=== PATIENT | female | born 1960 | race Caucasian/White ===

== ENCOUNTER 2016-06-28 11:56 | Emergency (ER) | payer OTHER ==
[2016-06-28 12:11] VITALS: BP 149/82
--- NOTE | 2016-06-28 12:40 | UC ---
General HPI - HPI Summary HPI Summary: 56 yo female reports trouble sleeping and anxiety since her son's in Sep Her BP as also been high she is a smoker - History of Current Complaint Chief Complaint: UCAlteredMentalStatus Stated Complaint: ANXIETY, AND HIGH BLOOD PRESSURE Time Seen by Provider: 06/28/16 12:20 Onset/Duration: Gradual Onset, Lasting Weeks Onset Severity: Moderate Current Severity: Moderate Pain Intensity: 0 Associated Signs & Symptoms: Negative: Agitation, Abdominal Pain, Anticoagulation Therapy, Back Pain, Confusion, Cough, Chest Pain, Decreased Responsiveness, Dizziness, Diarrhea, Dysuria, Decreased Oral Intake, Diaphoresis , Edema, Fever, Headache, Hematemesis, Hemoptysis, Immunocompromised, In- Dwelling Medication Device, Melena, Nausea, Palpitations, Recent Medication Changes, Syncope, SOB, Trauma, Vomiting, Wheezing, Weakness - Allergy/Home Medications Allergies/Adverse Reactions: Allergies Allergy/AdvReac Type Severity Reaction Status Date / Time No Known Allergies Allergy Verified 06/28/16 12:11 Home Medications: Home Medications ALPRAZolam TAB* [Xanax TAB*] 0.5 mg PO Q8H PRN 06/28/16 [History Confirmed 06/28] PARoxetine HCL TAB* [Paxil TAB*] 06/28/16 [History] PMH/Surg Hx/FS Hx/Imm Hx Previously Healthy: Yes Endocrine History Of: Denies: Diabetes, Thyroid Disease Cardiovascular History Of: Denies: Cardiac Disorders, Hypertension Respiratory History Of: Denies: COPD, Asthma GI/ History Of: Denies: Ulcer - Surgical History Surgical History: Yes Surgery Procedure, Year, and Place: 2 c-sections - Family History Known Family History: Positive: Hypertension, Other - cardiomyopathy...son and uncle - Social History Alcohol Use: Rare Substance Use Type: None Smoking Status (MU): Heavy Every Day Tobacco Smoker Cessation Counseling: Patient Advised to Stop Review of Systems Constitutional: Negative Skin: Negative Eyes: Negative ENT: Negative Respiratory: Negative Cardiovascular: Negative Gastrointestinal: Negative Genitourinary: Negative Motor: Negative Neurovascular: Negative Musculoskeletal: Negative Neurological: Negative Psychological: Anxious All Other Systems Reviewed And Are Negative: Yes Physical Exam Triage Information Reviewed: Yes Appearance: Well-Appearing, No Pain Distress, Well-Nourished Vital Signs: Initial Vital Signs Temp 98.5 F 06/28/16 12:06 Pulse 88 06/28/16 12:06 Resp 18 06/28/16 12:06 BP 149/82 06/28/16 12:06 Pulse Ox 100 06/28/16 12:06 Vital Signs Reviewed: Yes Eye Exam: Normal ENT: Positive: Normal ENT inspection Neck: Positive: Nontender, No Lymphadenopathy Respiratory: Positive: Lungs clear, Normal breath sounds, No respiratory distress, No accessory muscle use Cardiovascular: Positive: RRR, No Murmur Musculoskeletal: Positive: ROM Intact, No Edema Neurological: Positive: Alert Psychological Exam: Normal Skin Exam: Normal Course/Dx - Differential Dx - Multi-Symptom Provider Diagnoses: anxiety and hypertension. smoker Discharge - Discharge Plan Condition: Stable Disposition: HOME Prescriptions: Propranolol TAB* [Inderal TAB*] 20 mg PO BID #60 tab clonazePAM TAB(*) [KlonoPIN TAB(*)] 0.5 mg PO TID PRN #21 tab MDD 3 PRN Reason: Anxiety Patient Education Materials: Cigarette Smoking and Your Health (GEN), Hypertension (ED), Anxiety (ED) Referrals: [facility] REFERRAL [Outside]
== END 2016-06-28 12:46 | disposition home or self-care (01) ==
LOC: UCEAST 11:56
DX: F41.9 Anxiety disorder, unspecified (principal); I10 Essential (primary) hypertension; F17.210 Nicotine dependence, cigarettes, uncomplicated
CPT/HCPCS: 99212; G0463

== ENCOUNTER 2016-07-09 11:05 | Emergency (ER) | payer SELFPAY ==
--- NOTE | 2016-07-09 12:20 | RAD ---
INDICATION: Left shoulder injury. TECHNIQUE: 3 views of the left shoulder were obtained. FINDINGS: The bones are in normal alignment. No fracture is seen. Joint spaces appear maintained. IMPRESSION: NO EVIDENCE OF FRACTURE.
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
[2016-07-09 12:39] LABS: Hematocrit 46 % (35-47); Hemoglobin 15.8 g/dl (12.0-16.0); Mean Corpuscular HGB Conc 34 g/dl (31-36); Mean Corpuscular Hemoglobin 31 pg (27-31); Mean Corpuscular Volume 90 fL (80-97); Mean Platelet Volume 9 um3 (7.4-10.4); Red Blood Count 5.15 10^6/ul (4.0-5.4); Red Cell Distribution Width 15 % (10.5-15); White Blood Count 8.3 10^3/ul (3.5-10.8)
[2016-07-09 12:54] LABS: BUN/Creatinine Ratio 14.5 (8-20); Calcium 9.9 mg/dL (8.6-10.3); EGFR African American 91.8 (>60); EGFR Non-African American 71.4 (>60); Potassium 3.6 mmol/L (3.5-5.0)
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
[2016-07-09] MEDS ORDERED: Iohexol 300* (CONTRAST) 10 ML SDV IV ONE (13:14)
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
[2016-07-09] MEDS ORDERED: Ibuprofen TAB* 600 MG PO ONE (13:56)
[2016-07-09 14:28] VITALS: BP 138/80
== END 2016-07-09 14:26 | disposition home or self-care (01) ==
LOC: ED 11:05
DX: S16.1XXA Strain of muscle, fascia and tendon at neck level, initial encounter (principal); S20.212A Contusion of left front wall of thorax, initial encounter; V49.9XXA Car occupant (driver) (passenger) injured in unspecified traffic accident, initial encounter; Y93.9 Activity, unspecified; Y92.9 Unspecified place or not applicable; Y99.9 Unspecified external cause status; J43.9 Emphysema, unspecified; K76.0 Fatty (change of) liver, not elsewhere classified
CPT/HCPCS: 36415; 71260; 72040; 80048; 85025; 99282; A9270-GY; Q9967

== ENCOUNTER 2016-10-25 11:23 | Emergency (ER) | payer SELFPAY ==
[2016-10-25 12:42] VITALS: BP 131/70
--- NOTE | 2016-10-25 13:05 | RAD ---
INDICATION: Right elbow injury COMPARISON: None TECHNIQUE: AP, lateral, and oblique views were obtained. FINDINGS: The bony structures, joint spaces, and soft tissues are normal for age. IMPRESSION: NO ACUTE BONY FINDINGS.
[2016-10-25] MEDS ORDERED: Ibuprofen TAB* 600 MG PO ONE (13:18)
--- NOTE | 2016-10-25 13:25 | UC ---
I, Oh,Onel, scribed for Anant Leung MD on 10/25/16 at 1305 . Upper Extremity HPI - HPI Summary HPI Summary: This 56 yo female presents to [facility] for RUE elbow pain since 10/20/2016. Pt was carrying out a milk cart out of walker fridger when she accidentally impacted her RUE elbow on metal door. Pt denies any prior injury or re-injury of RUE elbow. Pt took Advil today at 0830 AM, but didn't have much relief. PMHx includes anxiety/depression. Pt works as cook. - History of Current Complaint Chief Complaint: UCUpperExtremity Stated Complaint: ELBOW INJURY Time Seen by Provider: 10/25/16 12:47 Hx Obtained From: Patient ?: No Onset/Duration: Lasting Days, Still Present Pain Intensity: 7 Pain Scale Used: 0-10 Numeric Location Of Pain: Is Discrete @ - RUE elbow Aggravating Factor(s): Nothing Alleviating Factor(s): Nothing Associated Signs And Symptoms: Positive: Negative - Allergies/Home Medications Allergies/Adverse Reactions: Allergies Allergy/AdvReac Type Severity Reaction Status Date / Time No Known Allergies Allergy Verified 10/25/16 12:34 PMH/Surg Hx/FS Hx/Imm Hx Psychological History: Anxiety, Depression Other History Of: Negative For: Anticoagulant Therapy - Surgical History Surgical History: Yes Surgery Procedure, Year, and Place: 2 c-sections - Family History Known Family History: Positive: Hypertension, Other - cardiomyopathy son ( 30's), uncle (living, had early intervnt) - Social History Alcohol Use: None Substance Use Type: None Smoking Status (MU): Current Every Day Smoker - Immunization History Most Recent Influenza Vaccination: never Most Recent Tetanus Shot: up to date Review of Systems Constitutional: Negative Skin: Negative Eyes: Negative ENT: Negative Respiratory: Negative Cardiovascular: Negative Gastrointestinal: Negative Genitourinary: Negative Motor: Negative Neurovascular: Negative Musculoskeletal: Other: - RUE elbow pain Neurological: Negative Psychological: Negative All Other Systems Reviewed And Are Negative: Yes Physical Exam Triage Information Reviewed: Yes Vital Signs: Initial Vital Signs Temp 98.9 F 10/25/16 12:36 Pulse 68 10/25/16 12:36 Resp 17 10/25/16 12:36 BP 131/70 10/25/16 12:36 Pulse Ox 97 10/25/16 12:36 Vital Signs Reviewed: Yes - Additional Comments The patient is well-nourished in no acute distress and in no acute pain. The skin is warm and dry and skin color reflects adequate perfusion. HEENT: The head is normocephalic and atraumatic. The pupils are equal and reactive. The conjunctivae are clear and without drainage. Nares are patent and without drainage. Mouth reveals moist mucous membranes and the throat is without erythema and exudate. The external ears are intact. The ear canals are patent and without drainage. The tympanic membranes are intact. Neck is supple with full range of motion and non-tender. There are no carotid bruits. There is no neck vein distension. Respiratory: Chest is non-tender. Musculoskeletal: There is no back pain noted. Extremities are non-tender with full range of motion. There is good capillary refill. There is no peripheral edema or calf tenderness elicited. No crepitus noted. Negative deformity. Tender over alecronon of RUE elbow. No pain with supination or pronation. Focal strength and sensation intact. Neurological: Patient is alert and oriented to person, place and time. Psychiatric: The patient has an appropriate affect and does not exhibit any anxiety or depression. Diagnostics - Radiology RUE elbow Xray Interpretation: No Acute Changes Radiology Interpretation Completed By: Radiologist Re-Evaluation - Re-Evaluation First Eval Re-Evaluation Time: 13:21 Comment: updated with imaging restuls. Upper Extremity Course/Dx - Course Course Of Treatment: Pt presents with chief complaint of RUE elbow pain since her injury on 10/20/2016. Pt bumped into metal door of fridge while carrying out the milk cart. Negative numbness. X-ray result is negative for any fracture. Pt is discharged. - Differential Dx/Diagnosis Differential Diagnosis/HQI/PQRI: Contusion, Fracture (Closed) Provider Diagnoses: 1) right elbow contusion 2) right elbow pain. Discharge - Discharge Plan Condition: Stable Disposition: HOME Patient Education Materials: Ibuprofen (By mouth), Contusion in Adults (ED), Ice Pack Application (ED) Forms: *Work Release Referrals: [facility] [Outside] - 2 Days The documentation as recorded by the Shay conde Soohyun accurately reflects the service I personally performed and the decisions made by , Anant Leung MD.
== END 2016-10-25 13:32 | disposition home or self-care (01) ==
LOC: UCEAST 11:23
DX: S50.01XA Contusion of right elbow, initial encounter (principal); W22.09XA Striking against other stationary object, initial encounter; Y93.G3 Activity, cooking and baking; Y92.9 Unspecified place or not applicable; Y99.9 Unspecified external cause status; M25.521 Pain in right elbow; F41.8 Other specified anxiety disorders; Z72.0 Tobacco use
CPT/HCPCS: 99212; A9270-GY; G0463

== ENCOUNTER 2023-08-03 08:11 | Inpatient (IN) ==
[2023-08-03 08:42] LABS: ABS Basophils 0.1 10^3/uL (0.0-0.1); ABS Eosinophils 0.1 10^3/uL (0.0-0.5); ABS Lymphocytes 1.6 10^3/uL (1.0-4.8); ABS Monocytes 0.5 10^3/uL (0.0-0.9); ABS Neutrophils 4.5 10^3/uL (1.5-7.6); ABS Nucleated RBC 0.01 10^3/ul; Eosinophil % 1.7 %; Hemoglobin 14.5 g/dL (11.5-14.3); Lymphocyte % 23.7 %; Mean Corpuscular Hgb Conc 34.4 g/dL (31-36); Mean Corpuscular Volume 90.2 fL (80-97); Mean Platelet Volume 9.3 fL (7.5-11.2); Nucleated Red Blood Cells % 0.1 %/100WBC (0.0-0.8); Platelet Count 280 10^3/uL (150-450); Red Blood Count 4.66 10^6/uL (3.63-4.92); Red Cell Distribution Width 14.7 % (12-17); White Blood Count 6.8 10^3/uL (3.8-11.8)
[2023-08-03 08:48] LABS: INR 1.07 (0.83-1.13)
[2023-08-03 09:28] LABS: Albumin 4.2 g/dL (3.2-5.2); Albumin/Globulin Ratio 1.8 (1-3); Calcium 9.4 mg/dL (8.6-10.3); Creatinine, Serum 0.91 mg/dL (0.51-0.95); Globulin 2.4 g/dL (2-4); Potassium 4.3 mmol/L (3.5-5.0); Total Bilirubin 0.6 mg/dL (0.2-1.0); Total Protein 6.6 g/dL (6.4-8.9); eGFR CKD-EPI 71.3 (>60)
[2023-08-03] MEDS: Iohexol 350 (CONTRAST) 500 ML MDV IV ONE (10:08)
[2023-08-03 10:15] LABS: High Sensitivity Troponin 1 Hr 17 pg/mL (<15)
[2023-08-03] MEDS ORDERED: Albuterol HFA INHALER 8 gm MDI INH PRN (11:13)
[2023-08-03] MEDS: DULoxetine DR 60 mg CAP PO SCH (16:48)
[2023-08-03] MEDS: Furosemide 20 mg/2 ml IV VIAL IV SLOW PU ONE (18:02)
[2023-08-03] MEDS: Enoxaparin 40 MG/0.4 ML SYR SUBCUT SCH (21:49)
[2023-08-04 08:48] LABS: Hematocrit 44.5 % (35-45); Mean Corpuscular Hemoglobin 30.3 pg (27-33); Mean Corpuscular Hgb Conc 33.7 g/dL (31-36); Mean Platelet Volume 9.3 fL (7.5-11.2); Platelet Count 292 10^3/uL (150-450); Red Blood Count 4.94 10^6/uL (3.63-4.92); Red Cell Distribution Width 14.8 % (12-17); White Blood Count 7.2 10^3/uL (3.8-11.8)
[2023-08-04] MEDS ORDERED: DULoxetine DR 60 mg CAP PO SCH (09:00)
[2023-08-04 09:27] LABS: Calcium 9.6 mg/dL (8.6-10.3); Creatinine, Serum 0.93 mg/dL (0.51-0.95); Potassium 4.4 mmol/L (3.5-5.0); eGFR CKD-EPI 69.5 (>60)
[2023-08-04] MEDS ORDERED: Heparin 1,000 UNIT/ML 10 ml (10,000 UNITS) CATHLAB/DIALYSIS ONE (10:30)
[2023-08-04] MEDS ORDERED: Iohexol 350 (CONTRAST) 200 ML MDV IV ONE (10:31)
[2023-08-04] MEDS ORDERED: nitroGLYCERIN DRIP 25,000 MCG/250 ML BTL ONE (10:31)
[2023-08-04] MEDS ORDERED: Lidocaine 1% MPF 5 ML VIAL ONE (10:31)
[2023-08-04] MEDS ORDERED: niCARdipine 0.1MG/ML IVPREMIX 20 MG/200 ML BAG IV ONE (10:31)
[2023-08-04] MEDS ORDERED: Heparin 2 UNITS/ML 1000 mls 3,000 ML IV ONE (10:31)
[2023-08-04] MEDS ORDERED: Flumazenil 0.5 mg/5 ml 0.1 MG/ML 5 ml VIAL IV PRN (10:36)
[2023-08-04] MEDS ORDERED: Naloxone 0.4 mg VIAL 0.4 mg/ml 1 ml VIAL IV PUSH PRN (10:36)
[2023-08-04] MEDS ORDERED: fentaNYL 100 mcg/2 ml 50 MCG/ML VIAL ONE (10:49)
[2023-08-04] MEDS ORDERED: Midazolam 5 mg/5 ml VIAL 1 mg/ml 5 ml VIAL (5 mg) ONE (10:49)
[2023-08-04 11:32] LABS: POC SO2 65 %
[2023-08-04 11:32] LABS: POC SO2 94 %
[2023-08-04] MEDS: fentaNYL 100 mcg/2 ml 50 MCG/ML VIAL IV SLOW PU ONE (12:09)
[2023-08-04] MEDS: Midazolam 10 mg/10 ml VIAL 1 mg/ml 10 ml VIAL (10 mg) IV SLOW PU ONE (12:09)
[2023-08-05 06:32] LABS: Creatinine, Serum 0.84 mg/dL (0.51-0.95); Potassium 4.3 mmol/L (3.5-5.0)
[2023-08-05 06:33] LABS: Calcium 9.3 mg/dL (8.6-10.3); eGFR CKD-EPI 78.5 (>60)
[2023-08-05] MEDS ORDERED: Sulfur Hexaflouride MICROSPHR 25 MG VIAL ONE (09:08)
[2023-08-05 19:39] LABS: HDL Cholesterol 50.3 mg/dL
[2023-08-06 06:20] LABS: Calcium 9.3 mg/dL (8.6-10.3); Creatinine, Serum 0.95 mg/dL (0.51-0.95); Potassium 4.3 mmol/L (3.5-5.0); eGFR CKD-EPI 67.7 (>60)
[2023-08-06 13:53] VITALS: BP 103/68
== END 2023-08-06 13:45 | disposition home or self-care (01) | DRG 192 ==
LOC: ED 08:11 → EDHOLD 08:11 → SUATTDRO 11:05 → MEDTELE 16:38 → SUATTDRO 08-05 16:13
PROVIDERS: ADMIT Internal Medicine; ATTEND Hospitalist